=== PATIENT | female | born 1950 | race Caucasian/White ===

== ENCOUNTER → 2022-08-16 | Outpatient (CLI) | payer MEDICARE, OTHER ==
[~2022-08-16] VITALS: Ht 170.2 cm; Wt 85.7 kg
[~2022-08-16] MED LIST: ASPIRIN E.C. 8181 MG PO; CALCIUM 600600 MG PO; MASON NATURAL1200 MG PO; MASON NATURAL600 MG PO; MULTIVITAMIN FO1 CAP PO; NORVASC 10MG10 MG PO; PERCOCET 325 MG1 TA2 PO
[2022-08-16 13:25] VITALS: BP 146/82; PULSE 68; TEMP 98.2
[2022-08-16 14:45] VITALS: BP 114/71; PULSE 67
== END ==
LOC: COL.RAD 12:27
DX: M48.061 Spinal stenosis, lumbar region without neurogenic claudication (principal)
CPT/HCPCS: J3301

== ENCOUNTER → 2022-09-08 | Outpatient (CLI) | payer MEDICARE, OTHER ==
[~2022-09-08] VITALS: Ht 170.2 cm; Wt 85.0 kg
[2022-09-08 06:53] VITALS: BP 138/76; PULSE 62; TEMP 98
[2022-09-08 08:10] VITALS: BP 124/76; PULSE 67
--- NOTE | 2022-09-08 09:24 | NUR ---
pt still has very numb legs, she does have some tingling in the lower extremeties.
--- NOTE | 2022-09-08 11:15 | NUR ---
pt able to stand and take steps. went over dc info and pt leaves in wheelchair with her daughter to [facility].
== END ==
LOC: COL.RAD 06:09
DX: M48.061 Spinal stenosis, lumbar region without neurogenic claudication (principal)
CPT/HCPCS: J3301